=== PATIENT | female | born 1985 ===

== ENCOUNTER 2021-09-18 08:00 | Outpatient (RCR) | payer OTHER, MEDICAID, SELFPAY | END 2022-03-04 13:11 | disposition home or self-care (01) | LOC: HO.PT 08:00 | PROVIDERS: PCP Physician Assistant Medical; Visit Provider Midwife | DX: R10.2 Pelvic and perineal pain (principal); R32 Unspecified urinary incontinence | CPT/HCPCS: 97112; 97140; 97530 ==